=== PATIENT | female | born 1990 | race American Indian/Alaskan Native ===

== ENCOUNTER 2017-12-19 20:20 | Emergency (ER) | payer MEDICAID ==
[2017-12-19 21:22] LABS: Bacteria,Urine 2+ /HPF (Negative); Bilirubin,Urine NEG (Negative); Blood,Urine MOD (Negative); Color,Urine Yellow (Yellow); Protein,Urine <15 mg/dL mg/dL (Negative); Urobilinogen,Urine < 2.0 mg/dL (<2.0)
[2017-12-19 21:23] LABS: HCG Qualitative,Urine Negative (Negative)
[2017-12-20] MEDS ORDERED: FLAGYL PO ONE (00:02)
[2017-12-20] MEDS ORDERED: ZITHROMAX PO ONE (00:02)
[2017-12-20] MEDS ORDERED: XYLOCAINE 1% MPF 5 mL INFILTRATI ONE (00:02)
[2017-12-20] MEDS ORDERED: ROCEPHIN IM ONE (00:03)
[2017-12-20] MEDS ORDERED: ULTRAM PO ONE (00:06)
--- NOTE | 2017-12-20 00:08 | Emergency Department Report ---
ED Female HPI - General Chief complaint: Urogenital-Female Stated complaint: VAGINAL INFECTION Time Seen by Provider: 12/19/17 23:33 Source: patient Mode of arrival: Ambulatory Limitations: No Limitations - History of Present Illness Initial comments: Patient presents for vaginal discharge white thick malodorous after having unprotected sex four days ago states symptoms started on day 3 complaining of vaginal pain dysuria urgency frequency no back pain abdominal pain no nausea vomiting symptoms are relieved by nothing MD Complaint: vaginal discharge, dysuria, possible STD Onset/Timin -: days(s) (was R 32) Radiation: non-radiating Severity: moderate Severity scale (0 -10): 4 Quality: other (burning irritation) Consistency: intermittent Improves with: none Worsens with: urination Last Menstrual Period: 12/01/17 EDC: 09/07/18 Associated Symptoms: vaginal discharge, dysuria. denies: vaginal bleeding, abdominal pain, nausea/vomiting, fever/chills, headaches, loss of appetite, hematuria, rash, seizure, shortness of breath, syncope, weakness - Related Data Sexually active: Yes : 1 Para: 0 A: 1 Previous Rx's Medication Instructions Recorded Last Taken Type Fluconazole [Diflucan TAB] 150 mg PO ONCE #1 tablet 12/20/17 Unknown Rx Nitrofurantoin [place]/M-Cryst 100 mg PO BID #14 capsule 12/20/17 Unknown Rx [Macrobid CAP] Allergies Allergy/AdvReac Type Severity Reaction Status Date / Time No Known Allergies Allergy Unverified 12/19/17 21:03 ED Review of Systems ROS: Stated complaint: VAGINAL INFECTION Other details as noted in HPI Constitutional: denies: chills, fever Eyes: denies: eye pain, eye discharge, vision change ENT: denies: ear pain, throat pain Respiratory: denies: cough, shortness of breath, wheezing Cardiovascular: denies: chest pain, palpitations Endocrine: no symptoms reported Gastrointestinal: denies: abdominal pain, nausea, diarrhea Genitourinary: urgency, dysuria, frequency, discharge. denies: hematuria, abnormal menses, dyspareunia Musculoskeletal: denies: back pain, joint swelling, arthralgia Skin: denies: rash, lesions Neurological: denies: headache, weakness, paresthesias Psychiatric: denies: anxiety, depression Hematological/Lymphatic: denies: easy bleeding, easy bruising ED Past Medical Hx - Past Medical History Previous Medical History?: No - Surgical History Past Surgical History?: No - Social History Smoking Status: Never Smoker Substance Use Type: None - Medications Home Medications: Home Medications Medication Instructions Recorded Confirmed Last Taken Type Fluconazole [Diflucan TAB] 150 mg PO ONCE #1 tablet 12/20/17 Unknown Rx Nitrofurantoin [place]/M-Cryst 100 mg PO BID #14 capsule 12/20/17 Unknown Rx [Macrobid CAP] ED Physical Exam - General Limitations: No Limitations General appearance: alert, in no apparent distress - Head Head exam: Present: atraumatic, normocephalic - Eye Eye exam: Present: normal appearance - ENT ENT exam: Present: mucous membranes moist - Neck Neck exam: Present: normal inspection - Respiratory Respiratory exam: Present: normal lung sounds bilaterally. Absent: respiratory distress, wheezes - Cardiovascular Cardiovascular Exam: Present: regular rate, normal rhythm, normal heart sounds. Absent: systolic murmur, diastolic murmur, rubs, gallop - GI/Abdominal GI/Abdominal exam: Present: soft, normal bowel sounds. Absent: tenderness, bruit, hernia - Rectal Rectal exam: Present: deferred - External exam: Present: normal external exam. Absent: erythema (yellow green ) , swelling, lesions, lacerations, ecchymosis, bleeding Speculum exam: Present: erythema, vaginal discharge, cervical discharge (clear ) . Absent: vaginal bleeding, foreign body, tissue, laceration Bi-manual exam: Present: cervical motion tendernes. Absent: adnexal tenderness , adnexal mass, uterine enlargement, uterine tenderness - Extremities Exam Extremities exam: Present: normal inspection, full ROM, normal capillary refill. Absent: tenderness - Back Exam Back exam: Present: normal inspection, full ROM. Absent: tenderness, CVA tenderness (R), CVA tenderness (L), muscle spasm - Neurological Exam Neurological exam: Present: alert, oriented X3, CN II-XII intact, normal gait - Psychiatric Psychiatric exam: Present: normal affect, normal mood - Skin Skin exam: Present: warm, dry, intact, normal color. Absent: rash ED Course Vital Signs 12/19/17 12/19/17 12/20/17 20:26 20:55 00:36 Temperature 99.7 F H 99.7 F H Pulse Rate 132 H 110 H Respiratory 24 16 18 Rate Blood Pressure 137/79 137/79 O2 Sat by Pulse 99 100 Oximetry ED Medical Decision Making - Lab Data Laboratory Tests 12/19/17 Unknown Urine Color Yellow Urine Turbidity Slightly-cloudy Urine pH 8.0 H Ur Specific [place] 1.009 Urine Protein <15 mg/dl Urine Glucose (UA) Neg Urine Ketones Neg Urine Blood Mod Urine Nitrite Neg Urine Bilirubin Neg Urine Urobilinogen < 2.0 Ur Leukocyte Esterase Lg Urine WBC (Auto) 4.0 Urine RBC (Auto) 10.0 U Epithel Cells (Auto) 2.0 Urine Bacteria (Auto) 2+ Urine HCG, Qual Negative - Medical Decision Making This is an STD patient denies hematuria no back pain and CVA tenderness no flow problems no fever no chills no suprapubic pain no abdominal pain repeat vital signs are improved vaginal exam moderate erythema yellow-green discharge clear discharge cervix positive cervical motion tenderness over this workup prep GC chlamydia pending plan treatment for STD Rocephin and Zithromax Flagyl 2 g by mouth DC'd home prescription for Diflucan patient will follow with health department for HIV and herpes screening patient will follow-up with [employer] as needed patient is currently A/O 3 tolerating by mouth intake without nausea vomiting no symptoms there is no fever at this time no symptoms of PIDsymptoms or renal stones or pyelonephritis v/s at this time: temp: 98.7, hr: 98, resp: 16, bp:127/71 Critical care attestation.: If time is entered above; I have spent that time in minutes in the direct care of this critically ill patient, excluding procedure time. ED Disposition Clinical Impression: STD exposure Disposition: TO HOME OR SELFCARE Is pt being admited?: No Does the pt Need Aspirin: No Condition: Stable Instructions: Sexually Transmitted Diseases (ED), Safe Sex (ED), Vaginitis (ED) Additional Instructions: follow up with health departmemt for hiv and hsv screening Prescriptions: Fluconazole [Diflucan TAB] 150 mg PO ONCE #1 tablet Nitrofurantoin [place]/M-Cryst [Macrobid CAP] 100 mg PO BID #14 capsule Referrals: PRIMARY CARE, [Primary Care Provider] - 3-5 Days Forms: Work/School Release Form(ED) Time of Disposition: 00:47
[2017-12-20 01:01] VITALS: BP 134/80
== END 2017-12-20 01:00 | disposition home or self-care (01) ==
LOC: ED 20:20
DX: Z20.2 Contact with and (suspected) exposure to infections with a predominantly sexual mode of transmission (principal)
CPT/HCPCS: 81001; 81025; 87210; 87591; 96372; 99284; J0696

== ENCOUNTER 2019-04-03 18:26 | Emergency (ER) | payer OTHER ==
[2019-04-03 18:59] VITALS: BP 142/91
--- NOTE | 2019-04-03 19:01 | Emergency Department Report ---
Chief Complaint: Upper Respiratory Infection Stated Complaint: COUGHING Time Seen by Provider: 04/03/19 18:57 - HPI History of Present Illness: This is a 28 y.o. F. that presents to the ER with cough for 3 days. Denies fever, chills, n/v/d, myalgia, weakness PMH of asthma Increased use of inhaler - Exam Vital Signs: Vital Signs 04/03/19 18:57 Temperature 98.7 F Pulse Rate 107 H Respiratory 18 Rate Blood Pressure 142/91 O2 Sat by Pulse 100 Oximetry MSE screening note: Focused history and physical exam performed. Due to findings the following was ordered: ED Disposition for MSE Condition: Stable
--- NOTE | 2019-04-03 21:59 | Emergency Department Report ---
Chief Complaint: Upper Respiratory Infection Stated Complaint: COUGHING Time Seen by Provider: 04/03/19 18:57 - HPI History of Present Illness: Patient is a 28-year-old female presents emergency room with complaints of a cough for 2 days. she states she has clear rhinorrhea. She denies any productive cough. She denies any fever, sore throat, ear pain, chest pain, shortness of breath, leg swelling, any other symptoms. She states she has a past medical history of childhood asthma. She denies any allergies medications. She states her last menstrual cycle was 03/20/2019. initial vitals with mild tachycardia, on auscultation pt has a normal heart rate and rhythm On exam: Patient is nontoxic appearing, no acute distress Normal oropharynx, no tonsillar exudate, no tonsillar hypertrophy pale boggy turbinates, no erythema of the turbinates, no purulent drainage TMs and canals are normal bilaterally Breath sounds are clear bilaterally without wheezing, rales, rhonchi, stridor Heart sounds are normal, regular rate and rhythm, no gallops, rubs, murmur s/sx consistent with allergies/allergic rhinitis No clinical signs or symptoms of pneumonia no clinical signs or symptoms of PE, wells criteria very low risk Discussed supportive care and symptomatic treatment with patient Patient is presenting with a non-medical emergency at this time pt will be referred to a primary care doctor - Exam Vital Signs: Vital Signs 04/03/19 18:57 Temperature 98.7 F Pulse Rate 107 H Respiratory 18 Rate Blood Pressure 142/91 O2 Sat by Pulse 100 Oximetry MSE screening note: Focused history and physical exam performed. Due to findings the following was ordered: ED Disposition for MSE Clinical Impression: Allergies Qualifiers: Encounter type: initial encounter Qualified Code(s): T78.40XA - Allergy, unspecified, initial encounter Allergic rhinitis Qualifiers: Allergic rhinitis trigger: unspecified Allergic rhinitis seasonality: unspecified Qualified Code(s): J30.9 - Allergic rhinitis, unspecified Disposition: MED SCREENING EXAM-LEFT Is pt being admited?: No Does the pt Need Aspirin: No Condition: Stable Instructions: Allergic Rhinitis (ED), Allergies (ED) Additional Instructions: Please take Zyrtec, Flonase [id number] for your allergies. May use Robitussin as needed for cough. May use a humidifier. May do warm saltwater gargles, drink warm tea, eat warm soup broth. Increase your fluid intake over the next several days. Follow-up with a primary care doctor in the next 2-3 days. Given a list of community clinics. Return to the emergency room for any new or worsening symptoms. Referrals: [facility] [Outside] - 2-3 Days JABARI RUDOLPH MD [Staff Physician] - 2-3 Days [facility] [Outside] - 2-3 Days Time of Disposition: 21:58 Print Language: ITALIAN
== END 2019-04-03 22:00 | disposition left against medical advice (07) ==
LOC: ED 18:26
DX: T78.40XA Allergy, unspecified, initial encounter (principal); J30.9 Allergic rhinitis, unspecified; X58.XXXA Exposure to other specified factors, initial encounter
CPT/HCPCS: 99281

== ENCOUNTER 2019-04-06 22:07 | Emergency (ER) | payer OTHER ==
[2019-04-06 22:33] VITALS: BP 140/83
--- NOTE | 2019-04-07 00:46 | XRay Report ---
. CHEST 2 VIEWS INDICATION / CLINICAL INFORMATION: cough. COMPARISON: None available. FINDINGS: SUPPORT DEVICES: None. HEART / MEDIASTINUM: No significant abnormality. LUNGS / PLEURA: No significant pulmonary or pleural abnormality. No pneumothorax. ADDITIONAL FINDINGS: No significant additional findings. IMPRESSION: 1. No acute findings. Signer Name: Titus Posey MD Signed: 04/07/2019 12:41 AM Workstation Name: [id number]
--- NOTE | 2019-04-07 01:58 | Emergency Department Report ---
Minor Respiratory - HPI Chief Complaint: Upper Respiratory Infection Stated Complaint: COUGH Time Seen by Provider: 04/07/19 01:10 Duration: 2 weeks Pain Location: Nose Severity: moderate Minor Respiratory: Yes Rhinorrhea, Yes Able to Tolerate Fluids, Yes Cough, Yes Sick Contacts, No Sore Throat, No Ear Pain, No Hemoptysis, No Chest Pain, No Shortness of Breath, No Fever Other History: This is a 28-year-old -German female who presents to the emergency room with a cough for 2 weeks. Reports taken [id number] cold and flu medication with minimal improvement of symptoms. Patient reports she is coughing every 15-20 minutes. She reports cough is nonproductive. She denies fever, chills, nausea, vomiting, myalgia, chest pain, shortness of breath, or weakness. ED Review of Systems ROS: Stated complaint: COUGH Other details as noted in HPI Constitutional: denies: chills, fever Respiratory: cough. denies: shortness of breath, wheezing Cardiovascular: denies: chest pain, palpitations Gastrointestinal: denies: abdominal pain, nausea, diarrhea Musculoskeletal: denies: back pain, joint swelling, arthralgia Skin: denies: rash, lesions Neurological: denies: headache, weakness, paresthesias Psychiatric: denies: anxiety, depression ED Past Medical Hx - Past Medical History Previous Medical History?: Yes Hx Asthma: Yes - Surgical History Past Surgical History?: No - Social History Smoking Status: Never Smoker Substance Use Type: None - Medications Home Medications: Home Medications Medication Instructions Recorded Confirmed Last Taken Type Fluconazole [Diflucan TAB] 150 mg PO ONCE #1 tablet 12/20/17 Unknown Rx Nitrofurantoin [place]/M-Cryst 100 mg PO BID #14 capsule 12/20/17 Unknown Rx [Macrobid CAP] Acetaminophen/Codeine [Tylenol 1 tab PO Q6H PRN #12 tab 11/17/18 Unknown Rx /Codeine # 3 tab] Ondansetron [Zofran Odt] 4 mg PO Q8HR PRN #20 tab.rapdis 11/17/18 Unknown Rx Benzonatate [Tessalon Perles] 100 mg PO Q8HR PRN #30 capsule 04/07/19 Unknown Rx Minor Respiratory Exam - Exam General: Vital signs noted. No distress. Alert and acting appropriately. HEENT: Yes Pharyngeal Erythema (erythematous posterior pharynx, uvula midline), Yes Moist Mucous Membranes, Yes Rhinorrhea (turbinates congested with clear discharge), No Pharyngeal Exudates, No Conjuctival Injection, No Frontal Tenderness, No Maxillary Tenderness Ear: Neither TM Bulge, Neither TM Erythema, Neither EAC Pain, Neither EAC Discharge Neck: Yes Supple, No Adenopathy Lungs: Yes Good Air Exchange, Yes Cough, No Wheezes, No Ronchi, No Stridor, No Labored Respirations, No Retractions, No Use of Accessory Muscles, No Other Abnormal Lung Sounds Heart: Yes Regular, No Murmur Abdomen: Yes Normal Bowel Sounds, No Tenderness, No Peritoneal Signs Skin: No Rash, No Edema Neurologic: Alert and oriented, no deficits. Musculoskeletal: Unremarkable. ED Course Vital Signs 04/06/19 22:32 Temperature 98.5 F Pulse Rate 98 H Respiratory 18 Rate Blood Pressure 140/83 O2 Sat by Pulse 98 Oximetry ED Medical Decision Making - Radiology Data Radiology results: report reviewed . CHEST 2 VIEWS INDICATION / CLINICAL INFORMATION: cough. COMPARISON: None available. FINDINGS: SUPPORT DEVICES: None. HEART / MEDIASTINUM: No significant abnormality. LUNGS / PLEURA: No significant pulmonary or pleural abnormality. No pneumothorax. ADDITIONAL FINDINGS: No significant additional findings. IMPRESSION: 1. No acute findings. - Medical Decision Making Patient examined by this provider and stable. No distress noted. Vitals normal. Chest xray has been obtained and negative for acute cardiopulmonary findings. Mild congestion on exam. Reviewed results with patient. Findings are susceptible of upper respiratory infection. Start benzonate for cough. Discharged home stable. Encouraged to do supportive care for URI. Follow up with Primary Care Provider in 2-3 days. Critical care attestation.: If time is entered above; I have spent that time in minutes in the direct care of this critically ill patient, excluding procedure time. ED Disposition Clinical Impression: Cough in adult Upper respiratory infection Qualifiers: URI type: acute nasopharyngitis (common cold) Qualified Code(s): J00 - Acute nasopharyngitis [common cold] Disposition: TO HOME OR SELFCARE Is pt being admited?: No Condition: Stable Instructions: Cold Symptoms (ED), Upper Respiratory Infection (ED) Additional Instructions: Increase fluid intake and rest. Wash hands frequently. Continue taking Tylenol or ibuprofen to control fever. F/U with Primary Care Provider. Return to ER if fever, SOB, or difficulty breathing after 48 hours of supportive care. Prescriptions: Benzonatate [Tessalon Perles] 100 mg PO Q8HR PRN #30 capsule PRN Reason: Cough Referrals: [facility] [Outside] - 3-5 Days [facility] [Outside] - 3-5 Days [facility] [Outside] - 3-5 Days Forms: Work/School Release Form(ED) Time of Disposition: 02:00
== END 2019-04-07 02:16 | disposition home or self-care (01) ==
LOC: ED 22:07
DX: J06.9 Acute upper respiratory infection, unspecified (principal); J45.909 Unspecified asthma, uncomplicated; Z79.899 Other long term (current) drug therapy
CPT/HCPCS: 71046